=== PATIENT | male | born 1985 | race Caucasian/White ===

== ENCOUNTER 2020-07-24 22:36 | Inpatient (IN) | payer MEDICAID ==
[~2020-07-24 22:36] MED LIST: ACET65TA OR; ASPI325T OR; LIPI1TAB2 OR; No Historical Meds
--- OUTSIDE RECORDS SUMMARY | 2020-07-24 23:56 | CCD ---
Author Author [facility] Organization [facility] Address Unknown Phone Unavailable Care Team Providers Care Gas Manager Name Role Phone TERESEGUSTAVO Rosalind COBURN Unavailable Unavailable Re-disclosure Warning The records that you are about to access may contain information from federally-assisted alcohol or drug abuse programs. If such information is present, then the following federally mandated warning applies: This information has been disclosed to you from records protected by federal confidentiality rules (42 CFR part 2). The federal rules prohibit you from making any further disclosure of this information unless further disclosure is expressly permitted by the written consent of the person to whom it pertains or as otherwise permitted by 42 CFR part 2. A general authorization for the release of medical or other information is NOT sufficient for this purpose. The Federal rules restrict any use of the information to criminally investigate or prosecute any alcohol or drug abuse patient.The records that you are about to access may contain highly sensitive health information, the redisclosure of which is protected by Article 27-F of the [facility] Public Health law. If you continue you may have access to information: Regarding HIV / AIDS; Provided by facilities licensed or operated by the [facility] Office of Mental Health; or Provided by the [facility] Office for People With Developmental Disabilities. If such information is present, then the following [facility] mandated warning applies: This information has been disclosed to you from confidential records which are protected by state law. State law prohibits you from making any further disclosure of this information without the specific written consent of the person to whom it pertains, or as otherwise permitted by law. Any unauthorized further disclosure in violation of state law may result in a fine or detention sentence or both. A general authorization for the release of medical or other information is NOT sufficient authorization for further disc losure. Encounters Encounter Providers Location Date Indications Data Source(s ) Emergency Attender: IRISH THOMPSON 08:33:00 PM EST - 07/24/2020 11:16:00 PM [facility] Patient discharged. Insurance Providers Payer name Policy type / Coverage type Policy ID Covered republican ID Covered republican's relationship to forbes Policy [employer] Plan Information SHAILESH [id number] DEYANIRA [id number] Results ID Date Data Source [id number] 07/24/2020 08:33:00 PM [facility] 1 OrderSheet [facility] Emergency Department [address] [place] [address] Phone #: ext- [phone] 07/24/2020 20:27 Patient: JOE HERNANDEZ Sex: M : 1985 Age: 35yWEIGHT:97.5 kg (S) HEIGHT:67 inches (S) BMI:33.7ALLERGIES: NaldeconCHIEF COMPLAINT: abdominal painDIAGNOSIS: Diverticulitis of large intestineLAB ORDERSOrder Description Priority Entered Acknowledged InitialedCBC w Diff STAT 20:46 07/24/2020 20:47 Jagdish Pineda RN PA;CMP STAT 20:46 07/24/2020 20:47 Jagdish Pineda RN PA;Lactic Acid STAT 20:46 07/24/2020 20:47 Jagdish Pineda RN PA;Lipase STAT 20:46 07/24/2020 20:47 Jagdish Pineda RN PA;Urinalysis (Clean STAT 20:46 07/24/2020 Ack'd: 22:30 22:45 Ariadne Reese) Tania Mendoza R.N.; R.N.COVID-19 CAH (Not STAT 22:17 07/24/2020 22:29 Mary Ann,Symptomatic as Saroj Marin R.N.Defined by CDC) PA;(07/24/2020) (NotFirst Test)(Hospitalized) (Not) (NotResident inCongregate CareSetting) (NotEmployed inHealthcare Setting)DIAGNOSTIC STUDY ORDERSOrder Description Priority Entered Acknowledged InitialedCT Abd PEL W/ IV STAT 20:46 07/24/2020 20:47 Jagdish Lucia OrderSheet [facility] Emergency Department [address] [place] [address] Phone #: ext- [phone] 07/24/2020 20:27 Patient: JOE HERANNDEZ Sex: M : 1985 Age: 35yContrast Only Saroj Pineda RN(Oxygen?(No)) PA;(IV?(Yes)) Reason for Study: Abdominal PainMEDICATION/IV/DRIP/FLUID ORDERSOrder Description Priority Entered Acknowledged InitialedNS IV 1000 mL 20:46 07/24/2020 20:55 PeterBolus: : Bolus 1000 Saroj Pineda RNmL (X1) PA;Ofirmev IV 1000 mg 20:46 07/24/2020 20:57 Jagdish(NOW x1, Infuse Saroj Pineda RNover 15 minutes) PA;NS IV 1000 mL 21:32 07/24/2020 22:09 PeterBolus: : Bolus 1000 Saroj Pineda RNmL (X1) PA;Cipro IVPB 400 mg 21:48 07/24/2020 21:59 Jagdish Pineda RN PA;Flagyl IVPB 500 21:48 07/24/2020 Cancelled: Physician Order 22:30 Wademg/100mL Saroj BRADY PA;GENERAL ORDERSOrder Description Priority Entered Acknowledged Initialed[Electronically signed by Sarjo Rodriguez (22:44 07/24/2020)][Electronically signed by Tania Reese R.N. (23:16 07/24/2020)][Electronically locked by Tania Reese R.N. (23:16 07/24/2020)] Name Value Range Interpretation Code Description Data Leigh rce(s) Supporting Document(s) ID Date Data Source [id number] 07/24/2020 08:33:00 PM [facility] 1 Medication Reconciliation Report [facility] Emergency Department [address] [place] [address] Phone #: ext- [phone] 07/24/2020 20:27 Patient: JOE HERNANDEZ Sex: M : 1985 Age: 35yWeight: 97.5 kgHeight/Length: 67 in.BMI: 33.7ALLERGIES: NaldeconThe patient's Home Medications are listed below:NONE.The source(s) of the original Home Medication information:Not obtained.The following Medications were given to the patient in the Emergency Department:NS [IV] IV Fluids bolus 0, then 1000 mL/hr, administered: 20:55 07/24/2020Ofirmev Drip IV bolus 0, then 1000 mg, administered: 20:57 07/24/2020ipro [IVPB] IVPB bolus 0, then 400 mg 200 mL/hr, administered: 21:59 07/24/2020NS [IV] IV Fluids bolus 0, then 1000 mL/hr, administered: 22:09 07/24/2020The following Medications were prescribed to the patient:None. Name Value Range Interpretation Code Description Data Leigh rce(s) Supporting Document(s) ID Date Data Source [id number] 07/24/2020 08:33:00 PM [facility] 1 Medication Administration Record [facility] Emergency Department [address] [place] [address] Phone #: ext- [phone] 07/24/2020 20:27 Patient: JOE HERNANDEZ Sex: M : 1985 Age: 35yWeight: 97.5 kgHeight/Length: 67 inBMI: 33.7ALLERGIES: Naldecon Date/Time Medication Administered Medication OrderedStart NS [IV] NS IV 1000 mL Bolus: : Bolus 382651:[id number] 07/24/2020 Dose: IV Fluids mL (X1)Jagdish Pineda RN Rate: 1000 mL/hr over 1 hour(s)---- Dispensed: 1000 mL bagStop Site: #1 left AC22:08 1Peter Franky Pineda Ofirmev * Ofirmev IV 1000 mg (NOW x1,20:57 07/24/2020 Dose: 1000 mg * Drip IV Infuse over 15 minutes)Jagdish Pineda RN----Stop21:15 1PFranky Lynn NS [IV] NS IV 1000 mL Bolus: : Bolus [id number]:09 07/24/2020 Dose: IV Fluids mL (X1)Jagdish Pineda RN Rate: 1000 mL/hr over 1 hour(s)---- Dispensed: 1000 mL bagStop Site: #1 left AC23:05 1BLuis rodriguez,Brain CIPRO [IVPB] (CIPROFLOXACIN) Cipro IVPB 400 mg21:59 07/24/2020 Dose: 400 mg IVPBJagdish Pineda RN Rate: 200 mL/hr over 1 hour(s)---- Dispensed: 200 mL bagStop Site: #1 left AC23:06 Luis Garcia, Name Value Range Interpretation Code Description Data Leigh rce(s) Supporting Document(s) ID Date Data Source [id number] 07/24/2020 08:33:00 PM EST [facility] 1 General Instructions [facility] Emergency Department [address] [place] [address] Phone #: ext- [phone] 07/24/2020 20:27 Patient: JOE HERNANDEZ Sex: M : 1985 Age: 35yAcute diverticulitis of the colon with perforation and peritonitis. No bleeding or abscess.(Electronically signed by CAITLYN Meyer 07/24/2020 22:44) Name Value Range Interpretation Code Description Data Leigh rce(s) Supporting Document(s) ID Date Data Source [id number] 07/24/2020 08:33:00 PM EST [facility] 1 Clinical Report - Nurses [facility] Emergency Department [address] [place] [address] Phone #: ext- [phone] 07/24/2020 20:27 Patient: JOE HERNANDEZ Sex: M : 1985 Age: 35yTRIAGEArrived by private vehicle. Historian: patient. ( Patient states that starting 2 days ago he has started tonotice lower abd pain, sharp and consistent in nature. Patient states that today the pain has been worse.Patient denies bladder or bowel change, denies any past Sx.).Acuity: LEVEL 3.Chief Complaint: ABDOMINAL PAIN.Alert. No acute distress.This started yesterday. He has had severe, sharp, constant abdominal pain. The pain is described aslocated in the lower abdomen.Treatment SEWING DEPARTMENT SUPERVISOR:None.SEPSIS SCREEN: SIRS SCREEN NEGATIVE: heart rate greater than 90. SEPSIS SCREEN NEGATIVE.Possible sources of infection: acute abdomen. --20:34 07/24/20 Luis Sarah20:28 07/24/20. BP: 172/99 taken on the right arm, via an automated monitor, while sitting. MAP: 123.HR: 128 (regular, tachycardic and strong). RR: 20 (regular, unlabored and normal). O2 saturation: 97% onroom air. Temp: 100.1 F (oral). Pain level now: 01/08. --20:34 07/24/20 Luis Sarah.Weight: 97.5 kg stated. Height/Length: 67 inches Per Patient. BMI: 33.7. --20:30 07/24/20 Luis Sarah.MedicationsNone. --20:53 07/24/20 Jagdish Pineda RN.AllergiesNaldecon. --20:55 07/24/20 Jagdish Pineda RN.PROBLEMS:no known problems.ADDITIONAL SURGERIES:no known surgeries.HistorySOCIAL HX: Never smoker. No alcohol use or drug use. No recent travel. No known contact with a sickindividual. He was offered HIV testing but declined and hepatitis C testing but declined. He has nottraveled outside the [place] 2 Clinical Report - Nurses [facility] Emergency Department [address] [place] [address] Phone #: ext- [phone] 07/24/2020 20:27 Patient: JOE HERNANDEZ Sex: Adri : 1985 Age: 35y Infectious disease exposure: No infectious disease exposure. SELF HARM ASSESSMENT: Self harm assessment was performed. The patient answered "no" to the question(s) "Have you recently felt down, depressed, or hopeless?", "Do you have thoughts of harming or killing yourself?", "Do you have a plan for harming or killing yourself?", "Have you recently had thoughts about harming or killing others?", "Do you have any dangerous items in your possession?", "Have you noticed less interest or pleasure in doing things?", "Are you here because you tried to hurt yourself?" and "Have you ever tried to hurt yourself before today?". ABUSE ASSESSMENT: Abuse assessment: deferred. Abuse denied. No report of abuse. NUTRITIONAL RISK ASSESSMENT: The nutritional risk assessment revealed no deficiencies. FUNCTIONAL ASSESSMENT: Functional assessment: no impairments noted. LEARNING NEEDS ASSESSMENT: The learning needs assessment revealed no barriers. FALL RISK ASSESSMENT: Fall risk assessment completed. No risk factors identified. SKIN INTEGRITY ASSESSMENT: Skin integrity risk assessment completed. No skin integrity risk identified. --20:34 07/24/20 Luis Sarah. Interventions Identification and allergy band on patient. To treatment room. --20:34 07/24/20 Luis Sarah.PHYSICAL ASSESSMENTAmbulatory to room.GENERAL / NEURO / PSYCH: Alert. Oriented X 4. Appears in pain.HEENT: Mucous membranes are pink.RESPIRATORY: Respirations not labored. Breath sounds within normal limits.CVS: Normal sinus rhythm noted. Capillary refill less than 2 seconds.GI / : Abdominal tenderness in the periumbilical area, left side of the abdomen and left lower quadrant.Bowel sounds within normal limits.SKIN: Skin is warm and dry. --20:41 07/24/20 Jagdish Pineda RN.NURSING PROGRESS NOTES20:41 07/24/2020 Site #1 started via IV in the left antecubital space with an 20g angiocath, with aseptictechnique and good blood return; one attempt. Blood drawn: rainbow set and green tube(s). Labeled in thepresence of the patient and sent to the lab. Saline lock flushed with 10 mL saline. --20:41 07/24/20 RENATA Marie Patient gowned. Head of bed elevated. Reassurance given. Call light placed in reach. Side rails up x 2. Bed placed in lowest position. Brakes of bed on. Patient ready for evaluation- ED physician and PA notified. --20:42 07/24/20 Jagdish Pineda RN 3 Clinical Report - Nurses [facility] Emergency Department [address] [place] [address] Phone #: ext- [phone] 07/24/2020 20:27 Patient: JOE HERNANDEZ Sex: M : 1985 Age: 35y 20:55 07/24/2020 Started bag #1 1000 mL IV Fluids NS; at 1000 mL/hr over 1 hour(s) via site #1 via IV pump. Allergies verified and confirmed 5 rights. IV patency established. IV site checked: no pain, redness, or swelling. IV flushed thoroughly pre- and post-medication administration. Information reviewed with patient including reason for taking this medication. Verbalizes understanding. --20:55 07/24/20 Jagdish Pineda RN 20:57 07/24/2020 Ofirmev * Drip IV 1000 mg infused at 400 ml/hr over 15 minutes, 100 ml --20:57 07/24/20 Jagdish Pineda RN 21:15 07/24/2020 Ofirmev Drip IV Discontinued: infused. Total amount infused: 100 mL. IV patency established. IV site checked: no pain, redness, or swelling. IV flushed thoroughly. --21:25 07/24/20 Jagdish Pineda RN 21:33 07/24/20. BP: 116/89. MAP: 98. HR: 114. RR: 16. O2 saturation: 98%. Pain level now: 0/10. --21:33 07/24/20 Jagdish Pineda RN 21:59 07/24/2020 Started 400 mg of Cipro (Ciprofloxacin) IVPB in bag #1 200 mL; at 200 mL/hr over 1 hour(s) via site #1. via IV pump. Allergies verified and confirmed 5 rights. IV patency established. IV site checked: no pain, redness, or swelling. IV flushed thoroughly pre- and post-medication administration. Information reviewed with patient including reason for taking this medication. Verbalizes understanding. --21:59 07/24/20 Jagdish Pineda RN 22:08 07/24/2020 IV Fluids NS via IV site #1 Discontinued: bag #1 infused. Total amount infused: 1000 mL. IV patency established. IV site checked: no pain, redness, or swelling. IV flushed thoroughly. --22:08 07/24/20 Jagdish Pineda RN 22:07/24/2020 Started bag #2 1000 mL IV Fluids NS; at 1000 mL/hr over 1 hour(s) via site #1 via IV pump. Allergies verified and confirmed 5 rights. IV patency established. IV site checked: no pain, redness, or swelling. IV flushed thoroughly pre- and post-medication administration. Information reviewed with patient including reason for taking this medication. Verbalizes understanding. --22:09 07/24/20 Jagdish Pineda RN 23:05 07/24/2020 IV Fluids NS via IV site #1 Discontinued: bag #1 infused. Total amount infused: 100 mL. IV patency established. IV site checked: no pain, redness, or swelling. IV flushed thoroughly. --23:05 07/24/20 Luis Sarah 23:06 07/24/2020 Cipro IVPB via IV site #1 Discontinued: bag #1 infused. Total amount infused: 100 mL. IV patency established. IV site checked: no pain, redness, or swelling. IV flushed thoroughly. --23:06 07/24/20 Luis Sarah.DISPOSITION / DISCHARGE 23:14 07/24/2020 Site #[address] upon transfer; patent, no pain and no signs of infection or infiltration. Good blood return present. Flushed with 10 mL saline; flushes easily. --23:14 07/24/20 Tania Reese, 4 Clinical Report - Nurses [facility] Emergency Department [address] [place] [address] Phone #: ext- [phone] 07/24/2020 20:27 Patient: JOE HERNANDEZ Sex: M : 1985 Age: 35y R.N. Transferred to [facility]. Visit overview, summary of care (CCDA), Emtala forms and Face Sheet provided to transport team and EMS via paper and fax. Transported via ambulance by EMS and transport team with IV. Report was given to a nurse via a phone call. Report included information regarding patient's care, treatment, allergies and condition including: recent changes and anticipated changes, current vital signs and abnormal labs. Report included treatment information regarding medications given or pending; type and amount of IV fluids and medications infusing and total volume infused. All questions were answered. Report was acknowledged and care was transferred. (RENATA New). --23:15 07/24/20 Tania Reese R.N. 23:13 07/24/20. BP: 116/99. MAP: 104. HR: 95. R R: 17. O2 saturation: 100% on room air. Temp: 99.1 F. Pain level now: 0/10. Additional comments: MD Thompson aware of VS and okay with transfer to [facility]. --23:15 07/24/20 Tania Reese R.N. Departure time: 23:15 07/24/2020. --23:15 07/24/20 Tania Reese R.N.Locked/Released at 07/24/2020 23:16 by Tania Reese R.N. Name Value Range Interpretation Code Description Data Leigh rce(s) Supporting Document(s) ID Date Data Source [id number] 07/24/2020 08:33:00 PM [facility] 1 Clinical Report - Physicians/Mid Levels [facility] Emergency Department [address] [place] [address] Phone #: ext- [phone] 07/24/2020 20:27 Patient: JOE HERNANDEZ Sex: M : 1985 Age: 35y Time Seen: 20:40 07/24/2020. Arrived- By private vehicle.HISTORY OF PRESENT ILLNESS Chief Complaint: ABDOMINAL PAIN. It is described as "pain" and sharp and it is described as located in the lower abdomen and in the left lower quadrant. This started 2 days ago; Patient states that starting 2 days ago he has started to notice lower abd pain, sharp and consistent in nature. Patient states that today the pain has been worse. Patient denies bladder or bowel change, denies any past Sx. It was abrupt in onset and has been constant. At its maximum, severity described as moderate. When seen in the E.D., severity described as moderate. No nausea, vomiting or diarrhea. Similar symptoms previously. None. Recent medical care: Not recently seen/assessed.REVIEW OF SYSTEMSNo constipation, black stools, hematemesis, difficulty with urination or pain with urination. No urinaryfrequency, bloody stools, fever, headache or sore throat. No blurred vision, chest pain, difficulty breathing,cough or joint pain. No skin rash, chills or back pain. Last bowel movement: today. The patient has nothad weight loss.SOCIAL HISTORYSmoker- current status unknown (Dips). Never smoker. No alcohol use or drug use.PHYSICAL EXAMVital Signs: 07/24/2020 20:28 BP: sitting 172/99. MAP: 123. HR: 128. RR: 20. O2 saturation: 97% onroom air. Temp: 100.1 F. Pain level now: 8/10. Have been reviewed as abnormal. Tachycardic. Febrile.Oxygen saturation normal.Appearance: Alert. Oriented X3. No acute distress.Eyes: Pupils equal, round and reactive to light. Eyes normal inspection.ENT: Ears normal. Nose normal. Pharynx normal.Neck: Normal inspection. Neck supple.CVS: Tachycardia. Heart sounds normal.Respiratory: No respiratory distress. Breath sounds normal.Abdomen: Soft. Mild tenderness in the suprapubic area and left lower quadrant. Bowel sounds normal.No organomegaly. No mass. Distention. Femoral pulses equal.Back: Normal inspection.Skin: Skin warm and dry. Normal skin color. No rash. Normal skin turgor.Extremities: Extremities exhibit normal ROM. No lower extremity edema.Neuro: Oriented X 3. 2 Clinical Report - Physicians/Mid Levels [facility] Emergency Department [address] [place] [address] Phone #: ext- [phone] 07/24/2020 20:27 Patient: JOE HERNANDEZ Sex: M : 1985 Age: 35yLABS, X-RAYS, AND EKGCT Abdomen - Pelvis: mod ruptured sigmoid diverticulitis. Study type: upper abdomen; lower abdomen;pelvis. Abdomen - pelvic CT performed with IV contrast. The study was interpreted by the radiologist andcontemporaneously by me. Interpretation time: 21:52 07/24/2020.Laboratory Tests: Laboratory tests have been ordered, with results reviewed and considered in themedical decision making process. CBC w Diff: (AMISH: 07/24/2020 20:38) ( MsgRcvd 07/24/2020 21:48) Final results Test Result Flag Units (Reference) CBC W/AUTOMATED DIFF COMPLETE BLOOD COUNT WBC 15.6 H 10/uL (4.2 - 11.0) RBC 5.09 10/uL (4.50 - 6.30) HEMOGLOBIN 14.9 g/dL (14.0 - 16.0) HEMATOCRIT 44.1 % (41.0 - 51.0) MCV 86.6 fL (80.0 - 94.0) MCH 29.3 pg (27.0 - 34.0) MCHC 33.8 g/dL (31.0 - 36.0) RDW 12.8 % (11.5 - 14.8) PLATELETS 375 10/uL (150 - 450) MPV 8.6 fL (7.4 - 10.4) NEUT 76.3 % (37.0 - 80.0) LYMPH 14.8 L % (25.0 - 40.0) MONO 6.9 % (3.0 - 8.0) EOS 1.2 % (0.0 - 7.0) BASO 0.4 % (0.0 - 2.0) %IG 0.4 H % (0.0 - 0.0) %NRBC 0.0 % (0.0 - 0.0) #NEUT 11.86 H 10/uL (2.00 - 6.90) #LYMPH 2.31 10/uL (0.60 - 3.40) #MONO 1.08 H 10/uL (0.00 - 0.90) #EOS 0.18 10/uL (0.00 - 0.70) #BASO 0.07 10/uL (0.00 - 0.20) #IG 0.06 10/uL (0.00 - 0.10) #NRBC 0.00 10/uL (0.00 - 0.00) MANUAL DIFF SEE BELOW SEGS 76 % (37 - 80) BAND 0 % (0 - 5) %LYMPH 15 L % (25 - 40) %MONO 8 % (3 - 8) %EOS 1 % (0 - 7) %BASO 0 % (0 - 2) METAMYELOCYTE 0 % MYELOCYTE 0 % PROMYELOCYTE 0 % BLASTS 0 % LYNNETTE LYM 0 % NRBC 0 % RBC MORPH NOT INDICATED CMP: (AMISH: 07/24/2020 20:38) ( MsgRcvd 07/24/2020 21:20) Final results Test Result Flag Units (Reference) COMPREHENSIVE METABOLIC PANEL COMPREHENSIVE METABOLIC PANEL SODIUM 135 mEq/L (134 - 153) POTASSIUM 4.1 mEq/L (3.6 - 5.0) 3 Clinical Report - Physicians/Mid Levels [facility] Emergency Department [address] [place] [address] Phone #: ext- [phone] 07/24/2020 20:27 Patient: JOE HERNANDEZ Sex: M : 1985 Age: 35y CHLORIDE 99 mEq/L (98 - 107) CO2 25 MEQ/L (22 - 30) GLUCOSE 173 H MG/DL (70 - 99) BUN 10 MG/DL (7 - 21) CREATININE 0.8 MG/DL (0.7 - 1.5) BUN/CREAT 13 (8 - 27) TOTAL PROTEIN 7.6 G/DL (6.3 - 8.2) ALBUMIN 4.3 G/DL (3.9 - 5.0) GLOBULIN 3.3 H GM/DL (2.4 - 3.2) A/G RATIO 1.3 (0.8 - 2.0) CALCIUM 9.7 MG/DL (8.4 - 10.2) TOTAL BILI 0.9 MG/DL (0.2 - 1.3) ALKALINE PHOS 103 U/L (38 - 126) SGOT/AST 37 U/L (5 - 40) SGPT/ALT 51 U/L (7 - 56) ANION GAP 11.0 mmol/L (8.0 - 16.0) AGE 35 yrs NON-AA GFR >60 mL/min AFR AMER GFR >60 mL/min Male GFR Interprentation 20-49 yrs >60 mL/min Trqsmu78-44 yrs >56 mL/min Normal 60-69 yrs >49 mL/min Normal 70-79yrs>42 mL/min Normal 80 and above >35 mL/min Normal Female GFRInterpretation 20-39 yrs >60 mL/min Normal 40-49 yrs >58 mL/minNormal 50-59 yrs >51 mL/min Normal 60-69 yrs >45 mL/min Nzlhgl15-65 yrs >39 mL/min Normal 80 and above >32 mL/min NormalLactic Acid: (AMISH: 07/24/2020 20:38) ( MsgRcvd 07/24/2020 21:11) Final results Test Result Flag Units (Reference) LACTIC ACID 3.0 H MMOL/L (0.2 - 2.2)Lipase: (AMISH: 07/24/2020 20:38) ( MsgRcvd 07/24/2020 21:20) Final results Test Result Flag Units (Reference) LIPASE 35 U/L (13 - 60)CT Abd PEL W/ IV Contrast Only: (AMISH: 07/24/2020 20:46) ( MsgRcvd 07/24/2020 22:06) In ProgressCT ABDReason(s): Abdominal PainTRANSPORTATION: WC IV? IV?(Yes) O2? Oxygen?(No) Ro Exam CT ABD //T// PELVIS W/ [place] [address] PHONE: [phone] FAX: [phone] Name .................. : DAVID Rush Acct Number.................. : [id number] ROOM. ................. : TR-06 MR Number ................... : [id number] Stay type ............. : E/R Discharge Date......... ... : Admit Date ......... : 07/24/20 Admit Phys .................... : [facility] Date of ....... : 1985 Family Phys ................... : Phone .................. : [phone] Age ................................ : 35 Film# .................. .:[id number] Sex ........... ...................... : M Unsigned transcriptions are preliminary reports and do not represent a medical or legal document CT ABD Reason(s): Abdominal Pain 4 Clinical Report - Physicians/Mid Levels [facility] Emergency Department [address] [place] [address] Phone #: ext- [phone] 07/24/2020 20:27 Patient: JOE HERNANDEZ Sex: M : 1985 Age: 35y CT OF THE ABDOMEN AND PELVIS WITH CONTRAST: INDICATION: Abdominal pain. FINDINGS: The lung bases are clear. There is fatty infiltration of the liver. Normal contrast-enhanced CT appearance of the spleen, pancreas, adrenal glands and kidneys. No gallbladder wall thickening or biliary duct dilatation. The visualized bowel is normal in caliber. The appendix is normal. There is ruptured diverticulitis of the sigmoid colon with free air. The bladder and pelvic organs appear normal. No acute osseous abnormality. No lymphadenopathy. IMPRESSION: Moderate ruptured sigmoid diverticulitis. While performing the above CT examination, radiation dose reduction was accomplished utilizing automated exposure control, adjusting of the mA and kV based on the patient's body size and/or the use of imperative reconstructive techniques. CT dose: 1121.4 mGycm Contrast agent in mL: 75 Isovue 370 Method of administration: Intravenous Page 1of 2 [place] [address] PHONE: [phone] FAX: [phone] Name .................. : DAVID Rush Acct Number.................. : [id number] ROOM. ................. : TR-06 Number ................... : [id number] Stay type ............. : E/R Discharge Date......... ... : Admit Date ......... : 07/24/20 Admit Phys .................... : FAVIAN Date of ....... : 1985 Family Phys ................... : Phone .................. : [phone] Age ................................ : 35 Film# .................. .:[id number] Sex ................................. : M Unsigned transcriptions are preliminary reports and do not represent a medical or legal document CT ABD Reason(s): Abdominal Pain Electronically Reviewed and Signed By DCTNAME , SIGNDATE, [place] 5 Clinical Report - Physicians/Mid Levels [facility] Emergency Department [address] [place] [address] Phone #: [phone] 07/24/2020 20:27 Patient: JOE HERNANDEZ Sex: M : 1985 Age: 35y Transcribe Initials: DELBERT , Transcribe Date: 07/24/20 21:54, Dictation Date: <<REPDIST>> Page 2 of 2.PROGRESS AND PROCEDURESCourse of Care: 22:02 Jul 24 2020. Evaluation after observation. (Discussed with Dr Kamara and hereviewed CT A/P and feels pt needs to be transferred to a large hospital. Pt is agreeable with dx andtransfer.). 22:30 Jul 24 2020. Evaluation after observation. (Discussed with Dr Acevedo Gen Surg at [facility] and he accepts pt. IV Cipro given will holf IV Flagyl IOT no delay transport. Pt is agreeable with dx and transfer to [facility].). Patient counseled in person regarding the patient's stable condition, test results, diagnosis and need for transfer. Patient agrees with plan of care. 22:Jul 24 2020. Disposition: Benefits, risks and alternatives to transfer e xplained to patient. Transferred to [facility]. Summary of care (CCDA) provided to EMS and transfer facility via paper, fax and digital media. 22:[address] Acevedo General Surgery. UTI (catheter associated) was not present prior to transfer. Pressure ulcer was not present prior to transfer. Vascular infection (catheter associated) was not present prior to transfer. Surgical site infection was not present prior to transfer. An object left in surgery was not present prior to transfer. Blood incompatibility was not present prior to transfer. Air embolism was not present prior to transfer.CLINICAL IMPRESSION Acute diverticulitis of the colon with perforation and peritonitis. No bleeding or abscess.(Electronically signed by CAITLYN Meyer 07/24/2020 22:44) Name Value Range Interpretation Code Description Data [facility] rce(s) Supporting Document(s) ID Date Data Source [id number] 07/24/2020 11:04:00 PM EST [facility] Name Value Range Interpretation Code Description Data [facility] rce(s) Supporting Document(s) URINALYSIS [facility] dnaiela URINALYSIS SOURCE Clean Catch [facility] COLOR yellow NORMAL: Yellow [facility] CLARITY clear NORMAL: Clear [facility] Specific gravity of Urine by Test strip 1.005 1.001 - 1.030 [facility].5 5 - [facility] Gl[facility] [Mass/volume] in Urine by Test strip NORM NORMAL: Negat [facility] Bilirubin.total [Presence] in Urine by Test strip NEG NORMAL: Negative [facility] Ketones [Presence] in Urine by Test strip NEG NORMAL: Negative [facility] Protein [Mass/volume] in Urine by Test strip NEG NORMAL: Negat [facility] Nitrite [Presence] in Urine by Test strip NEG NORMAL: Negative [facility] BLOOD NEG NORMAL: Negative [facility] Leukocyte esterase [Presence] in Urine by Test strip NEG MARIANA L: Negative [facility] Urobilinogen [Mass/volume] in Urine by Test strip 4 less rosalia n 1.0 mg/dL [facility] MICROSCOPIC Not Indicate [facility] ospital ID Date Data Source [id number] 07/24/2020 10:47:00 PM [facility] NOT DETECTEDNOT DETECTED{ PROC EDURAL CONTROL VALID KIT LOT # _[id number] 07/24/20.AB . KIT EXP DATE _[id number] 07/24/20.AB . NORMAL RANGE IS NOT DETECTEDNEGATIVE RESULTS SHOULD BE TREATED PRESUMPTIVE AND, IF INCONSISTENT WITHCLINICAL SIGNS AND SYMPTOMS OR NECESSARY FOR PATIENT MANAGEMENT, SHOULD BETESTED WITH DIFFERENT AUTHORIZED OR CLEARED MOLECULAR TESTS. NEGATIVE RESULTSDO NOT PRECLUDE SARS-CoV-2 INFECTION AND SHOULD NOT BE USED THE SOLE BASISFOR PATIENT MANAGEMENT DECISIONS. Name Value Range Interpretation Code Description Data Leigh rce(s) Supporting Document(s) ID Date Data Source [id number] 07/24/2020 09:46:00 PM EST [facility] Name Value Range Interpretation Code Description Data Leigh rce(s) Supporting Document(s) CBC W/AUTOMATED DIFF [facility] COMPLETE BLOOD COUNT Leukocytes [#/volume] in Blood by Automated count 15.6 10^3/uL 4.2 - 11.0 H [facility] Erythrocytes [#/volume] in Blood by Automated count 5.09 10^6/uL 4. 50 - 6.30 [facility] Hemoglobin [Mass/volume] in Blood 14.9 g/dL 14.0 - 16.0 [facility] Hematocrit [Volume Fraction] of Blood by Automated count 44.1 % 4 1.0 - 51.0 [facility] Erythrocyte mean corpuscular volume [Entitic volume] by Auto mated count 86.6 fL 80.0 - 94.0 [facility] Erythrocyte mean corpuscular hemoglobin [Entitic mass] by Automated count 29.3 pg 27.0 - 34.0 [facility] Erythrocyte mean corpuscular hemoglobin concentration [Mass/volume] by Automated count 33.8 g/dL 31.0 - 36.0 [facility] Erythrocyte distribution width [Ratio] by Automated count 12.8 % 11.5 - 14.8 [facility] Platelets [#/volume] in Blood by Automated count 375 10^3/uL 150 - 45 0 [facility] Platelet mean volume [Entitic volume] in Blood by Automated count 8.6 fL 7.4 - 10.4 [facility] Neutrophils/100 leukocytes in Blood by Automated count 76.3 % 37. 0 - 80.0 [facility] Lymphocytes/100 leukocytes in Blood by Manual count 14.8 % 25.0 - 40.0 L [facility] Monocytes/100 leukocytes in Blood by Automated count 6.9 % 3.0 - 8.0 [facility] Eosinophils/100 leukocytes in Blood by Automated count 1.2 % 0.0 - 7.0 [facility] 0.4 %IG 0.4 % 0.0 - 0.0 H [facility] al %NRBC 0.0 % 0.0 - 0.0 [facility] al Neutrophils [#/volume] in Blood by Automated count 11.86 10^3/uL 2. 00 - 6.90 H [facility] Lymphocytes [#/volume] in Blood by Automated count 2.31 10^3/uL 0.60 - 3.40 [facility] Monocytes [#/volume] in Blood by Automated count 1.08 10^3/uL 0.00 - 0.90 H [facility] Eosinophils [#/volume] in Blood by Automated count 0.18 10^3/uL 0.00 - 0.70 [facility] Basophils [#/volume] in Blood by Automated count 0.07 10^3/uL 0.00 - 0.20 [facility] #IG 0.06 10^3/uL 0.00 - 0.10 [facility] ospital #NRBC 0.00 10^3/uL 0.00 - 0.00 [facility] ospital MANUAL DIFF SEE BELOW [facility] ital Segmented neutrophils/100 leukocytes in Blood by Manual count 76 % 37 - 80 [facility] BAND 0 % 0 - 5 [facility] al %LYMPH 15 % 25 - 40 L [facility] al %MONO 8 % 3 - 8 [facility] al %EOS 1 % 0 - 7 [facility] al 0 Metamyelocytes/100 leukocytes in Blood by Manual count 0 % [facility] Myelocytes/100 leukocytes in Blood by Manual count 0 % [facility] Promyelocytes/100 leukocytes in Blood by Manual count 0 % [facility] Blasts/100 leukocytes in Blood by Manual count 0 % [facility] LYNNETTE LYM 0 % [facility] al Nucleated erythrocytes/100 erythrocytes in Blood by Manual count 0 % [facility] RBC MORPH NOT INDICATED [facility] spital ID Date Data Source [id number] 07/24/2020 09:20:00 PM EST [facility] Name Value Range Interpretation Code Description Data Leigh rce(s) Supporting Document(s) COMPREHENSIVE METABOLIC PANEL [facility] COMPREHENSIVE METABOLIC PANEL Sodium [Moles/volume] in Serum or Plasma 135 mEq/L 134 - 153 [facility] Potassium [Moles/volume] in Serum or Plasma 4.1 mEq/L 3.6 - 5.0 [facility] Chloride [Moles/volume] in Serum or Plasma 99 mEq/L 98 - 107 [facility] Carbon dioxide, total [Moles/volume] in Serum or Plasma 25 MEQ/L 22 - 30 [facility] Glucose [Mass/volume] in Serum or Plasma 173 MG/DL 70 - 99 H [facility] BUN 10 MG/DL 7 - 21 [facility] Creatinine [Mass/volume] in Serum or Plasma 0.8 MG/DL 0.7 - 1.5 [facility] BUN/CREAT 13 8 - 27 [facility] al Protein [Mass/volume] in Serum or Plasma 7.6 G/DL 6.3 - 8.2 [facility] Albumin [Mass/volume] in Serum or Plasma 4.3 G/DL 3.9 - 5.0 [facility] Globulin [Mass/volume] in Serum by calculation 3.3 GM/DL 2.4 - 3.2 H [facility] A/G RATIO 1.3 0.8 - 2.0 [facility] Calcium [Mass/volume] in Serum or Plasma 9.7 MG/DL 8.4 - 10.2 [facility] Bilirubin.total [Mass/volume] in Serum or Plasma 0.9 MG/DL 0.2 - 1.3 [facility] Alkaline phosphatase [Enzymatic activity/volume] in Serum or Plasma 103 U/L 38 - 126 [facility] Aspartate aminotransferase [Enzymatic activity/volume] in Serum or Plasma 37 U/L 5 - 40 [facility] Alanine aminotransferase [Enzymatic activity/volume] in Seru m or Plasma 51 U/L 7 - 56 [facility] Anion gap 3 in Serum or Plasma 11.0 mmol/L 8.0 - 16.0 [facility] AGE 35 yrs [facility] NON-AA GFR >60 mL/min [facility] ital AFR AMER GFR >60 mL/min [facility] sp[facility] Male GFR In terprentation 20-49 yrs >60 mL/min Normal 50-59 yrs >56 mL/min Normal 60-69 yrs >49 mL/min Normal 70-79yrs >42 mL/min Normal 80 and above >35 mL/min Normal Female GFR Interpretation 20-39 yrs >60 mL/min Normal 40-49 yrs >58 mL/min Normal 50-59 yrs >51 mL/min Normal 60-69 yrs >45 mL/min Normal 70-79 yrs >39 mL/min Normal 80 and above >32 mL/min Normal ID Date Data Source [id number] 07/24/2020 09:20:00 PM [facility] Name Value Range Interpretation Code Description Data Leigh rce(s) Supporting Document(s) Lipase [Enzymatic activity/volume] in Serum or Plasma 35 U/L 13 - 60 [facility] ID Date Data Source [id number] 07/24/2020 09:11:00 PM [facility] Name Value Range Interpretation Code Description Data Leigh rce(s) Supporting Document(s) Lactate [Moles/volume] in Serum or Plasma 3.0 MMOL/L 0.2 - 2.2 H [facility] Procedure
[2020-07-25] VITALS (7 sets, daily range): BP systolic 124–135; BP diastolic 74–79
[2020-07-25] MEDS ORDERED: MORPHINE 2 MG/ML 1ML VIAL (J2270) IV PRN (00:45)
[2020-07-25] MEDS ORDERED: ONDANSETRON 4MG/2ML VIAL IV PRN (00:45)
[2020-07-25] MEDS ORDERED: KETOROLAC 30 MG/ML 1ML VIAL IV PRN (00:45)
[2020-07-25] MEDS: PIPERACILLIN/TAZOBACTAM SOD 3.375 GM in D5W MINI-BAG PLUS 50 ML IV SCH ×4 (01:17→19:01)
[2020-07-25] MEDS: LR 1,000 ML IV SCH ×2 (02:40→12:29)
--- NOTE | 2020-07-25 08:56 | HPE ---
HISTORY AND PHYSICAL DATE OF ADMISSION: 07/24/2020 ADMITTING DIAGNOSIS: Perforated sigmoid diverticulitis. HISTORY OF PRESENT ILLNESS: The patient is a generally healthy 35-year-old man. He noted that on the morning of Thursday, the , he had what he described as a gas cramp in his left lower quadrant which lasted for a short time and then seemed to resolve. Later in the day, in the evening, he noted the onset of some pain particularly in the left lower quadrant which did not resolve and actually worsened over time. The pain has been present since its onset on the evening of the . He denied any fevers or chills. He has no nausea or vomiting. He had been voiding without difficulty and denied any diarrhea, constipation or rectal bleeding. He has had no prior similar pains. He presented to the emergency department at [facility] just before 8:30 on the evening of the . He was found to have tenderness in the abdomen particularly on the left side and left lower quadrant. Laboratory studies showed a mildly elevated white blood cell count and he had a CT scan obtained. CT scan was interpreted by the radiologist as showing ruptured diverticulitis of the sigmoid colon with free air. The [facility] contacted our nursing supervisor contingents who contacted me and I spoke with Saroj Rodriguez, the physician senior agricultural assistant, in the emergency department at [facility] and accepted the patient in transfer for treatment. The patient is now being admitted for management of his perforated sigmoid diverticulitis. ALLERGIES: The patient reports an allergy only to NALDECON. MEDICATIONS: The patient is on no routine medications. 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 He apparently has had no significant lasting effect. He has no current primary care provider and has not seen a doctor recently. SURGICAL HISTORY: The patient has had no surgery. SOCIAL HISTORY: The patient is a user of smokeless tobacco. He denies any significant alcohol intake. 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 FAMILY HISTORY: Noncontributory. REVIEW OF SYSTEMS: The patient denies any chest pains or palpitations. He has no cough, wheezing or sputum production. He denies any history of deep vein thrombosis (DVT) or pulmonary embolus. He has had no similar prior abdominal pains. He has had no evidence of rectal bleeding. He denies any dysuria or hematuria. He has no significant bone or joint issues. PHYSICAL EXAMINATION: The patient is a moderately obese, pleasant man lying quietly on the hospital bed. He appears quite comfortable at rest. He is alert, oriented and cooperative with the history and the exam. His vital signs on presentation at [facility] at midnight showed a temperature of 99.9 with a pulse of 98, respirations of 18 and a blood pressure of 135/79. Room air pulse oximetry was 96%. Skin is warm and dry. Sclerae are anicteric. Mucous membranes are moist. The neck is supple without mass. Heart exam shows regular rhythm at about 100. He has clear breath sounds bilaterally. He has palpable radial and dorsalis pedis pulses bilaterally. The abdomen is mildly to moderately obese. He has bowel sounds present in all four quadrants. There is no tympany to percussion anywhere in the abdomen. There is some mild to moderate tenderness to percussion in the left lower quadrant but not in other areas of the abdomen. There is no significant tenderness to palpation in the right side of the abdomen or in the epigastrium. There is moderate direct tenderness in the left lower quadrant. There is no definite mass palpable. He has no evident hernia. LABORATORY STUDIES: From [facility] done at approximately 8:30 in the evening of the showed a white count of 16 with a hemoglobin of 15, hematocrit of 44 and a platelet count of 375,000. Differential count showed 76% neutrophils, 15% lymphocytes and 7% monocytes. He had a comprehensive medical profile that showed normal electrolytes, BUN and creatinine with a glucose elevated at 173. Total protein was 7.6 with an albumin of 4.3. Liver function tests are entirely normal. Lactic acid level was 3.0 and a lipase was 35. COVID testing was negative. A CT scan of the abdomen and pelvis was obtained. This was interpreted by the radiologist as showing ruptured diverticulitis of the sigmoid colon with free air. I was provided a disk of the CT scan for review. On my review, he has multiple tiny air bubbles scattered across the upper abdomen. There are a few small air bubbles down hear the sigmoid colon, which is obviously inflamed and somewhat thickened. There appears to be a small amount of free fluid in the pelvis adjacent to the sigmoid colon. IMPRESSION: 1. Sigmoid diverticulitis with perforation and scattered small bubbles of free air. 2. Obesity. 3. History of prior middle cerebral artery stroke. PLAN: The patient received one dose of ciprofloxacin at the [facility]. I have counseled him that he has a definite perforation in his sigmoid colon. There is some thickening and inflammatory change around the sigmoid colon consistent with diverticulitis. I counseled the patient that with gross perforations of the sigmoid colon that the standard approach has been to proceed urgently with laparotomy with resection and end colostomy. In the case of a contained perforation, treatment with antibiotics alone is usually successful. He is somewhere between these two extremes with clearly evidence for a perforation but without large amounts of free air and his exam other than the localized tenderness in his left lower quadrant is relatively benign with an elevated white count but without a significant left shift or immature forms. I have advised him that it may be possible to treat him successfully with antibiotics alone and not proceed directly to urgent surgery. I advised him that this may fail and he may still require surgery during this hospital stay but that if he is successfully treated with antibiotics, he may avoid the urgent surgery and the temporary colostomy. The patient had an opportunity to ask questions. He was counseled for the need for inpatient care. He is agreeable with the plan to attempt treatment with antibiotics rather than directly going to surgery. I will start him on Zosyn 3.375 grams IV every 6 hours. He will be kept NPO for now with some IV maintenance fluid. He will be provided with analgesics as necessary. I will repeat a CBC with a differential and obtain a CRP in the morning of the . If these remain stable, then we will continue the antibiotics and obtain serial labs. I would anticipate the need for a repeat CT scan sometime in the next few days. He was counseled that if his pain worsens significantly or he develops high fevers or his white count rises significantly, or his abdominal exam becomes worse then we may need to proceed with surgery and he is agreeable with this plan. JEREMIAH
[2020-07-25] MEDS: LACTULOSE 20 GM/30 ML SYRUP UD PO SCH ×2 (09:00→21:50)
[2020-07-25 09:52] LABS: BASO % 0.4 % (0.0-1.0); EOS # 0.3 10^3/uL (0.0-0.5); EOS % 2.9 % (0.0-3.0); HEMATOCRIT 41.4 % (42.0-52.0); HEMOGLOBIN 13.3 g/dl (13.5-17.5); LYMPH # 1.7 10^3/uL (1.5-5.0); LYMPH % 16.2 % (24.0-44.0); MEAN CORPUSCULAR HEMOGLOBIN 28.9 pg (27.0-33.0); MEAN CORPUSCULAR HGB CONC 32.1 g/dl (32.0-36.5); MONO # 1.2 10^3/uL (0.0-0.8); MONO % 11.2 % (2.0-8.0); NEUTROPHILS # 7.4 10^3/uL (1.5-8.5); NEUTROPHILS % 68.8 % (36.0-66.0); PLATELET COUNT, AUTOMATED 314 10^3/uL (150-450); WHITE BLOOD COUNT 10.7 10^3/uL (4.0-10.0)
--- NOTE | 2020-07-25 11:42 | IPNPDOC ---
Text Note Date of Service The patient was seen on 07/25/20. NOTE General Surgery Dr Acevedo The patient is a 35-year-old male transferred from OSH and admitted 07/24/20 with Sigmoid diverticulitis with perforation and scattered small bubbles of free air. The patient was placed on IV Zosyn and is currently npo. This morning, the patient states abdominal pain is improved. He denies any nausea or vomiting. Reports flatus, denies bowel movement since admission. T max 100.2. VSS. Gen. Awake and alert, no acute distress. Resting in bed comfortably. MMM Lungs clear to auscultation S1-S2 regular rate rhythm. Abdomen. Soft, mildly distended, tenderness with palpation noted in the left lower quadrant, no guarding or rebound. no peritoneal signs. Extremities. No edema. Labs this morning indicates a WBC 10.7 (16 at OSH) hemoglobin 13.3, hematocrit 41.4, platelets 314. CRP 14.7 Assessment/plan Sigmoid diverticulitis with perforation and scattered small bubbles of free air. Patient is reviewed by Dr. Acevedo. Continue npo for now. IVF LR at 125cc/hr. Continue IV Zosyn. The patient used 1 dose of Toradol at 2:53 AM. Continue to monitor. VS,Fishbone, I+O VS, Fishbone, I+O Laboratory Tests 07/25/20 09:38 Vital Signs Date Time Temp Pulse Resp B/P (MAP) Pulse Ox O2 Delivery O2 Flow Rate FiO2 07/25/20 10:00 98.7 88 18 124/75 (91) 99 Room Air I&O- Last 24 Hours up to 6 AM 07/25/20 06:00 Intake Total 463 ml Output Total 300 ml Balance 163 ml Attending Note Attending Note Agree with note by CAITLYN Tillman. Doing well so far with decreased pain. Will continue with Yoly Pemberton Jul 25, 2020 11:30 Choco Acevedo Jul 26, 2020 17:48
[2020-07-25] MEDS: NEOMYCIN SULFATE 500 MG TAB PO SCH ×2 (17:15→21:50)
--- NOTE | 2020-07-25 17:34 | IPN ---
PROGRESS NOTE DATE: 07/25/2020 HISTORY: The patient was admitted in the commercial lender hours today on transfer from [facility] with sigmoid diverticulitis with some scattered small bubbles of free air in the upper abdomen. He remained stable and I elected not to take him directly to the Operating Room but to try treatment with antibiotics. He was placed on Zosyn. The patient reports that he is feeling better today. He complains only of some pain in his left lower quadrant, particularly with movement. He has no nausea or vomiting. He is remaining n.p.o. at this time. VITAL SIGNS: His T-max was 100.3 this afternoon though he had been afebrile earlier in the day. Pulse is in the 80's to mid 90's and his blood pressure is normal. INTAKE AND OUTPUT: He is receiving maintenance IV fluid and he has had a urine output of 500 mL recorded today. PHYSICAL EXAMINATION: GENERAL APPEARANCE: The patient is alert and oriented and appears quite comfortable lying in the hospital bed. SKIN: Warm and dry. HEART: Regular rhythm and he is not tachycardic. LUNGS: Clear. ABDOMEN: Obese. He has bowel sounds present in all four quadrants. There is no tympani to percussion. There is no tenderness to percussion in the upper abdomen or on the right side of the abdomen. He does have some tenderness to percussion which is mild to moderate in the left mid abdomen, extending down into the left lower quadrant. He has moderate direct tenderness to palpation in the left lower quadrant. There is no referred tenderness from the right side of the abdomen or epigastrium to the left on palpation. LABORATORY STUDIES: Laboratory studies today show a white count of 11, hemoglobin 12, hematocrit 41 and a platelet count of 314,00. His differential count shows 60% neutrophils, 16% lymphocytes and 11% monocytes. Chemistry Profile: Actually his only chemistry today is a C-reactive protein of 14.7 which is quite elevated. ASSESSMENT: The patient has sigmoid diverticulitis with some perforation with multiple very small bubbles of air in the upper abdomen. He is feeling better today on Zosyn. His white blood cell count has come down almost to normal and his differential is not dramatically abnormal. He has tenderness still in the left lower quadrant but is not having tenderness in the upper abdomen or other areas where the small air bubbles were noted. PLAN: I will keep him n.p.o. today other than some medications. I am going to place him on some Neomycin to reduce his gut skinny. I am also going to give him some Lactulose as a mild laxative to encourage some cleaning out of his bowel in the event that surgery becomes necessary. We will recheck his labs tomorrow and assess his status at that point. I anticipate rechecking his CT scan within the next day or two to see if there has been any change in his small air bubbles or the fluid in his pelvis. JEREMIAH
[2020-07-26] VITALS (7 sets, daily range): BP systolic 122–157; BP diastolic 68–86
[2020-07-26] MEDS: LR 1,000 ML IV SCH ×2 (00:32→12:49)
[2020-07-26] MEDS: PIPERACILLIN/TAZOBACTAM SOD 3.375 GM in D5W MINI-BAG PLUS 50 ML IV SCH ×4 (00:32→18:50)
[2020-07-26] MEDS: NEOMYCIN SULFATE 500 MG TAB PO SCH ×3 (08:31→20:00)
[2020-07-26] MEDS: LACTULOSE 20 GM/30 ML SYRUP UD PO SCH (08:31)
[2020-07-26 10:37] LABS: BASO # 0.1 10^3/uL (0.0-0.2); BASO % 0.4 % (0.0-1.0); EOS # 0.2 10^3/uL (0.0-0.5); HEMATOCRIT 43.9 % (42.0-52.0); HEMOGLOBIN 13.9 g/dl (13.5-17.5); LYMPH # 1.8 10^3/uL (1.5-5.0); LYMPH % 15.6 % (24.0-44.0); MEAN CORPUSCULAR HEMOGLOBIN 27.9 pg (27.0-33.0); MEAN CORPUSCULAR HGB CONC 31.7 g/dl (32.0-36.5); MEAN CORPUSCULAR VOLUME 88.2 fl (80.0-96.0); MONO # 1.2 10^3/uL (0.0-0.8); MONO % 10.5 % (2.0-8.0); NEUTROPHILS # 8.4 10^3/uL (1.5-8.5); NEUTROPHILS % 71.1 % (36.0-66.0); PLATELET COUNT, AUTOMATED 407 10^3/uL (150-450); RED BLOOD COUNT 4.98 10^6/uL (4.30-6.10); WHITE BLOOD COUNT 11.8 10^3/uL (4.0-10.0)
--- NOTE | 2020-07-26 12:07 | IPNPDOC ---
Text Note Date of Service The patient was seen on 07/26/20. NOTE General Surgery Dr Acevedo The patient is a 35-year-old male transferred from [facility] and admitted 07/24/20 with Sigmoid diverticulitis with perforation and scattered small bubbles of free air. The patient was placed on IV Zosyn and is currently npo. This morning, the patient states abdominal pain is improved after having several bowel movements last evening after taking lactulose. States the only pain he has currently been having is occasional fleeting sharp pains when he feels gas moving and his abdomen. He denies any nausea or vomiting. T max 100.3. VSS. Gen. Awake and alert, no acute distress. Resting in bed comfortably. MMM Lungs clear to auscultation S1-S2 regular rate rhythm. Abdomen. Soft, mildly distended, no tenderness was noted on exam, no guarding or rebound. no peritoneal signs. Extremities. No edema. CBC indicates WBC 11.8, hematocrit 43.9, 70% neutrophils, 15% lymphocytes and 10% monocytes. Assessment/plan Sigmoid diverticulitis with perforation and scattered small bubbles of free air. Patient is reviewed by Dr. Acevedo. Continue npo for now. IVF LR at 125cc/hr. Continue IV Zosyn. Neomycin was added to reduce gut skinny. Lactulose twice a day. Plan for labs in a.m. and possibly consider updating CT abdomen/pelvis in a.m. Continue to closely monitor. VS,Fishbone, I+O VS, Fishbone, I+O Laboratory Tests 07/26/20 10:00 Vital Signs Date Time Temp Pulse Resp B/P (MAP) Pulse Ox O2 Delivery O2 Flow Rate FiO2 07/26/20 06:00 97.8 91 18 128/78 (95) 95 Room Air I&O- Last 24 Hours up to 6 AM 07/26/20 06:00 Intake Total 50 ml Output Total 860 ml Balance -810 ml Yoly Tillman Jul 26, 2020 12:07
[2020-07-27] MEDS: PIPERACILLIN/TAZOBACTAM SOD 3.375 GM in D5W MINI-BAG PLUS 50 ML IV SCH ×4 (00:50→19:33)
[2020-07-27 02:00] VITALS: BP 128/67
[2020-07-27 06:00] VITALS: BP 112/59
[2020-07-27 06:31] LABS: BASO % 0.4 % (0.0-1.0); EOS # 0.3 10^3/uL (0.0-0.5); EOS % 2.9 % (0.0-3.0); HEMATOCRIT 44.2 % (42.0-52.0); HEMOGLOBIN 14.4 g/dl (13.5-17.5); LYMPH # 2.1 10^3/uL (1.5-5.0); LYMPH % 19.8 % (24.0-44.0); MEAN CORPUSCULAR HEMOGLOBIN 28.6 pg (27.0-33.0); MEAN CORPUSCULAR HGB CONC 32.6 g/dl (32.0-36.5); MEAN CORPUSCULAR VOLUME 87.7 fl (80.0-96.0); MONO # 1.1 10^3/uL (0.0-0.8); MONO % 10.3 % (2.0-8.0); NEUTROPHILS # 6.9 10^3/uL (1.5-8.5); NEUTROPHILS % 66.2 % (36.0-66.0); PLATELET COUNT, AUTOMATED 402 10^3/uL (150-450); RED BLOOD COUNT 5.04 10^6/uL (4.30-6.10); WHITE BLOOD COUNT 10.4 10^3/uL (4.0-10.0)
[2020-07-27 07:09] LABS: ALT/SGPT 72 U/L (12-78); BILIRUBIN,TOTAL 0.9 MG/DL (0.2-1.0); BLOOD UREA NITROGEN 10 MG/DL (7-18); CALCIUM LEVEL 9.1 MG/DL (8.5-10.1); CARBON DIOXIDE LEVEL 25 MEQ/L (21-32); CHLORIDE LEVEL 105 MEQ/L (98-107); CREATININE FOR GFR 0.88 MG/DL (0.70-1.30); GLOMERULAR FILTRATION RATE > 60.0 (>60); GLUCOSE, FASTING 99 MG/DL (70-100); SODIUM LEVEL 137 MEQ/L (136-145); TOTAL PROTEIN 6.9 GM/DL (6.4-8.2)
[2020-07-27] MEDS: GASTROGRAFIN SOLUTION 30ML PO SCH ×2 (07:54→08:55)
--- NOTE | 2020-07-27 08:21 | IPN ---
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 We elected to attempt primary management with antibiotic therapy and no surgery. He received some oral Neomycin and some Lactulose yesterday. He reports several bowel movements. He has had no nausea or vomiting and reports basically that his pain has resolved at this point. VITAL SIGNS: He had a maximum temperature of 100.3 degrees at 14:00 on the . His pulse ranges from the mid to upper 80's to as high as 102. Blood pressure is in the normal range and room air oxygen saturation is fine. INTAKE AND OUTPUT: Intake and output is not adequately recorded. His IV fluid is not accurately recorded. He has had an excellent urine output yesterday of 900 mL. PHYSICAL EXAMINATION: GENERAL APPEARANCE: The patient is lying quietly on the hospital bed. He appears quite comfortable and denies any pain. He is alert and oriented. SKIN: Warm and dry. HEART: Regular rate and rhythm. LUNGS: Clear and he has no restriction of inspiration. ABDOMEN: Mildly protuberant. He has active bowel sounds. There is no tympany to percussion and no tenderness to percussion today. Palpation reveals that the abdomen is mildly full but soft. There is no tenderness identified on exam today. LABORATORY STUDIES: Today the patient had a CBC with a differential that showed a white count of 12, hemoglobin of 14, hematocrit of 44 and a platelet count of 407,000. His differential count showed 71% neutrophils, 16% lymphocytes and 10% monocytes. IMPRESSION: The patient feels much better today with basically resolution of his pain. He has had no nausea or vomiting. He reports that he is hungry. He has remained on Zosyn since admission. His white blood cell count is up a hair but his differential count does not seem to be significantly different today from yesterday. PLAN: The patient will remain on Zosyn. I will let him have some clear liquids and I will stop the Lactulose. His IV will be saline locked if he tolerates the clear liquids well. I will recheck a CBC, a medical profile and a CRP on the morning of the . I will also obtain a CT scan of the abdomen and pelvis with oral and IV contrast to follow up on his diverticulitis and look for evidence of further air leakage or development of an abscess in the pelvis. JEREMIAH
--- NOTE | 2020-07-27 08:39 | IPNPDOC ---
Text Note Date of Service The patient was seen on 07/27/20. NOTE General Surgery Dr Acevedo The patient is a 35-year-old male transferred from [facility] and admitted 07/24/20 with Sigmoid diverticulitis with perforation and scattered small bubbles of free air. The patient was placed on IV Zosyn and is currently npo. This morning, the patient states he is not having any abdominal pain. He denies any nausea or vomiting. he reports no new complaints this am. Afebrile. VSS. Gen. Awake and alert, no acute distress. Resting in bed comfortably. MMM Lungs clear to auscultation S1-S2 regular rate rhythm. Abdomen. Soft, still mildly distended but no tenderness was noted on exam, no guarding or rebound. no peritoneal signs. Extremities. No edema. CBC indicates WBC 10.4, hematocrit 44.2, 66% neutrophils, 19% lymphocytes and 10% monocytes. Similar compared with yesterday. CRP 19.10 compared with 14.7 on admission. Assessment/plan Sigmoid diverticulitis with perforation and scattered small bubbles of free air. Patient is reviewed by Dr. Acevedo. Continue npo for now. Continue IV Zosyn. Neomycin was added to reduce gut skinny. plan to await CT abdomen/pelvis with contrast planned for this morning. Continue to closely monitor. VS,Fishbone, I+O VS, Fishbone, I+O Laboratory Tests 07/26/20 10:00 07/27/20 06:11 Vital Signs Date Time Temp Pulse Resp B/P (MAP) Pulse Ox O2 Delivery O2 Flow Rate FiO2 07/27/20 06:00 98.7 91 19 112/59 (76) 98 Room Air I&O- Last 24 Hours up to 6 AM 07/27/20 06:00 Intake Total 3000 ml Output Total 0 ml Balance 3000 ml Attending Note Attending Note Agree with note with following changes/additions: Was transferred from [facility]. Started clears yesterday. Tolerated clears well. No N/V. Denies any pain. PEx: Abdomen obese with active BS. Soft throughout with no tenderness. CT images reviewed with official report pending when seen - Scan shows resolution of all free air in abdomen. Small amount of free fluid in left side of pelvis. Still with inflammatory changes of sigmoid. Has 1 larger air bubble in pericolonic tissue with 2 or 3 smaller bubbles. These air bubbles seem to be completely contained in the pericolic fat. Labs noted with stable WBC and near normal Diff. CRP remains up as expected. Imp: Still doing well with no evidence of ongoing leak. Plan: Continue Zosyn and inpatient care another day or 2. Begin regular diet. Patient shown the CT and counselled that there is still a chance that he could leak again and require surgery, but the longer we go without a problem the less likely that becomes. Yoly Tillman Jul 27, 2020 08:39 Choco Acevedo Jul 27, 2020 17:00
[2020-07-27] MEDS ORDERED: ISOVUE-370 76% 100ML VIAL As Ordered ONE (09:44)
[2020-07-27] MEDS: NEOMYCIN SULFATE 500 MG TAB PO SCH (11:08)
[2020-07-27] MEDS ORDERED: IBUPROFEN 600MG TAB PO PRN (11:35)
[2020-07-27] MEDS ORDERED: ACETAMINOPHEN TAB 650MG DOSE (2X325MG) PO PRN (11:35)
--- NOTE | 2020-07-27 12:01 | REP ---
INDICATION: follow diverticulitis with perforation. COMPARISON: Hepatic ultrasound 08/06/2011, upper abdominal images from CT chest 07/05/2011. I do not have more recent studies in this patient with reported perforated diverticulitis. TECHNIQUE: Oral Gastrografin mixture per our bowel contrast protocol and bolus 100 mL Isovue 370 scanning through the abdomen and pelvis. Coronal and sagittal reconstructions provided. FINDINGS: The lung bases the showed minimal linear subsegmental atelectatic change deep sulcus left lower lobe but are otherwise clear. Heart is not enlarged. No pericardial thickening, pericardial effusion or hiatal hernia. Low-density liver may reflect some fatty infiltration but no hepatomegaly, focal hepatic mass, intrahepatic biliary dilatation or adjacent ascites. No splenomegaly or focal splenic lesion. Adrenal glands are normal gallbladder shows no calcified stone or mass. Pancreas was unremarkable. The abdominal aorta is without aneurysm or dissection. No periaortic, mesenteric or other retroperitoneal pathologic sized lymph adenopathy. Small bowel loops are contrast filled and without a mass or inflammatory change. Kidneys show function without obstruction, stone, mass or hydronephrosis. No hydroureter or ureteral stone. Appendix is contrast filled and right mid abdomen it is retrocecal. The right colon, both flexures, transverse colon and proximal left colon unremarkable. There is collapse of the mid to distal left colon and the proximal sigmoid is it courses towards the midline shows marked wall thickening and pericolonic edema there is evidence for perforation with few air pockets anterior and superior to the proximal sigmoid with infiltration of fat adjacent. I do not see drainable abscess. On lung window review of all CT slices however, there is no extension of free air elsewhere within the abdomen or pelvis than the local site for perforation. The mid to distal sigmoid shows collapse, wall thickening and inflammatory change in the pericolonic fat. Bladder is nearly empty and demonstrates presence of an urachal remnant extending to the umbilicus. This is not distended, filled with fluid, calcification or mass. A few pelvic phleboliths are noted. Abutting the distal sigmoid centrally and towards the left is a fluid collection 4.2 x 3.4 by 2.7 cm. May be partially loculated. It does not have air bubbles. Additionally, there is also smaller amount of fluid to the right of midline deeper in the pelvis at the proximal rectum up to 2.4 by 0.9 cm. No ventral or inguinal hernia. Bone windows show no acute findings. IMPRESSION: 1. Sigmoid diverticulitis with perforation. There are at least partially contained air locules in the pericolonic fat anterior to the sigmoid in its proximal portion near midline of the upper pelvis without generalized free air anywhere else in the abdomen or pelvis. No drainable abscess in this location. Extensive wall thickening of the colon and collapse of the sigmoid distal to it with small amounts of contrast into the rectum. Diffuse wall thickening from the mid left colon through the rectum. There also fluid collections adjacent to the distal sigmoid at 4.2 x 3.4 x 2.7 cm as a loculated collection without air bubbles. Deeper in the pelvis abutting the proximal rectum towards the right is a 2.4 x 0.9 cm fluid collection also without air bubbles. These findings suggest perforated diverticulitis at the proximal sigmoid and loculated fluid collections below this in the deep pelvis. Perforation is locally contained with air bubble seen only directly in the region of the perforation. No other significant finding. A comparison can be provided if prior study is may available. <Electronically signed by Gus Dobbins > 07/27/20 [id number]
[2020-07-27 14:00] VITALS: BP 147/79
[2020-07-27 22:00] VITALS: BP 134/77
[2020-07-28] MEDS: PIPERACILLIN/TAZOBACTAM SOD 3.375 GM in D5W MINI-BAG PLUS 50 ML IV SCH ×2 (01:04→07:04)
[2020-07-28 02:00] VITALS: BP 123/75
[2020-07-28 06:00] VITALS: BP 123/77
[2020-07-28 06:32] LABS: BASO # 0.1 10^3/uL (0.0-0.2); BASO % 0.7 % (0.0-1.0); EOS # 0.4 10^3/uL (0.0-0.5); EOS % 3.9 % (0.0-3.0); HEMATOCRIT 43.6 % (42.0-52.0); LYMPH # 2.2 10^3/uL (1.5-5.0); LYMPH % 19.8 % (24.0-44.0); MEAN CORPUSCULAR HEMOGLOBIN 28.2 pg (27.0-33.0); MEAN CORPUSCULAR HGB CONC 32.1 g/dl (32.0-36.5); MEAN CORPUSCULAR VOLUME 87.9 fl (80.0-96.0); MONO # 1.1 10^3/uL (0.0-0.8); MONO % 10.1 % (2.0-8.0); NEUTROPHILS # 7.4 10^3/uL (1.5-8.5); NEUTROPHILS % 65.1 % (36.0-66.0); PLATELET COUNT, AUTOMATED 451 10^3/uL (150-450); RED BLOOD COUNT 4.96 10^6/uL (4.30-6.10); WHITE BLOOD COUNT 11.3 10^3/uL (4.0-10.0)
[2020-07-28] MEDS ORDERED: AUGM875T28 PO (09:13)
--- NOTE | 2020-07-28 13:29 | IPN ---
PROGRESS NOTE DATE: 07/28/2020 SUBJECTIVE: Patient has no pain whatsoever. He tolerated diet last night, yesterday afternoon and this morning without increasing abdominal pain or discomfort. He had some diarrhea initially yesterday morning, although notices that his stools are firming up at this time. Once again, he is not complaining of any pain. He does feel some fullness. He has been afebrile, although did have a T-max of 99.8, but is afebrile this morning. His white count is still mildly elevated at 11.3. PHYSICAL EXAMINATION: Reveals a benign abdomen without tenderness, without guarding, without rebound. No focal areas of concern on his physical exam. IMPRESSION/PLAN: The patient is status post perforated diverticulitis and still has some inflammatory changes with the CAT scan itself, but given the patient's significant and continued improvement, I do feel that it is reasonable to discharge him home on p.o. antibiotics. I have encouraged him to stay on a low residue diet, small meals, and to follow-up with Dr. Acevedo in two weeks. Will continue him on some p.o. antibiotics after discharge for the next 7 to 10 days. He is to return to the office or contact our office or go to the Emergency Room if he has any fever, chills, increasing pain, discomfort, nausea or vomiting.
== END 2020-07-28 11:48 | disposition home or self-care (01) | DRG 244 ==
LOC: M MSPAV 23:52
PROVIDERS: ADMIT Surgery; ATTEND Surgery
DX: K57.20 Diverticulitis of large intestine with perforation and abscess without bleeding (principal); E66.9 Obesity, unspecified; Z88.8 Allergy status to other drugs, medicaments and biological substances; Z86.73 Personal history of transient ischemic attack (TIA), and cerebral infarction without residual deficits; F17.290 Nicotine dependence, other tobacco product, uncomplicated